=== PATIENT | male | born 1935 | race African-American/Black ===

== ENCOUNTER 2019-11-13 09:00 | Inpatient (IN) | payer OTHER, MEDICARE ==
[2019-11-13 10:24] LABS: #Eosinphils 0.1 thou/uL (0.0-0.7); #Monocytes 0.9 thou/uL (0.11-0.59); #Neutrophils 11.3 thou/uL (1.40-6.50); %Basophils 0.2 % (0.0-1.0); %Eosinophils 0.5 % (0.0-10.0); %Lymphocytes 7.6 % (21.0-51.0); %Monocytes 6.9 % (0.0-10.0); %Neutrophils 84.8 % (42.0-75.0); Hemoglobin 12.9 g/dL (14.0-18.0); Mean Corpuscular HGB CONC 32.9 g/dL (32.0-36.0); Mean Corpuscular Hemoglobin 29.5 pg (27.0-31.0); Mean Corpuscular Volume 89.6 fL (78.0-98.0); Mean Platelet Volume 8.7 fL (7.4-10.4); Platelet Count 156 thou/uL (130-400); RBC Distribution Width 12.8 % (11.5-14.5); Red Blood Cell (RBC) Count 4.36 mill/uL (4.70-6.10); White Blood Cell (WBC) Count 13.4 thou/uL (4.8-10.8)
[2019-11-13 10:42] LABS: Bacteria/HPF None Seen HPF (None Seen); Bilirubin Negative (Negative); Blood, Urine 2+ (Negative); Clarity Clear (Clear); Glucose, Urine (Dipstick) Normal (Negative); Leukocyte Negative Leu/uL (Negative); Nitrite Negative (Negative); Protein, Urine (Dipstick) Negative (Neg-Trace); RBC/HPF 21-50 HPF (0-3); Squamous Epithelial None Seen HPF (0-3); Urobilinogen Normal mg/dL (Less than 2); WBC/HPF 0-3 HPF (0-3)
[2019-11-13 10:44] LABS: ALT (SGPT) 18 U/L (8-55); AST (SGOT) 29 U/L (5-34); Albumin 4.3 g/dL (3.4-4.8); Alkaline Phosphatase 47 U/L (40-110); Anion Gap 23 mmol/L (10-20); BUN (Urea Nitrogen) 66 mg/dL (8.4-25.7); Bilirubin, Total 1.6 mg/dL (0.2-1.2); Calc. Creatinine Clearance 0 mL/min (70-130); Calcium 9.4 mg/dL (7.8-10.44); Carbon Dioxide 19 mmol/L (23-31); Chloride 101 mmol/L (98-107); Estimated GFR-MDRD 8; Globulin 3.8 g/dL (2.4-3.5); Glucose 90 mg/dL (83-110); Potassium 4.3 mmol/L (3.5-5.1); Protein, Total 8.1 g/dL (5.8-8.1); Sodium 139 mmol/L (136-145)
--- NOTE | 2019-11-13 12:41 | RAD ---
CHEST 1 VIEW: Date: 11/13/19 HISTORY: Shortness of breath. Slipped from chair at home. FINDINGS: Heart size is normal. The lungs are clear. No confluent pneumonia, overt edema, pleural effusion, pne umothorax, or other acute process. IMPRESSION: No acute intrathoracic disease. Atherosclerosis of aorta. POS: [facility]
[2019-11-13] MEDS ORDERED: Ondansetron ODT 4 MG TAB PO PRN (13:13)
[2019-11-13] MEDS: cefTRIAXone\\ROCEPHIN 1 GM in Sodium Chloride 0.9% 100 ML IVPB SCH (13:54)
[2019-11-13] MEDS: Sodium Chloride 0.9% 1,000 ML IV SCH ×2 (13:56→23:57)
[2019-11-13 14:06] VITALS: BMI 19.1
--- NOTE | 2019-11-13 16:28 | ULT ---
RENAL ULTRASOUND HISTORY: Acute kidney injury COMPARISON: None FINDINGS: Right Kidney: Size: 9.9 x 5.9 x 6.4 cm. Abnormality: There is mild right hydronephrosis. No focal renal lesion is demonstrated. Left Kidney: Size: 10.7 x 6.8 x 5.1 cm Abnormality: There is mild left hydronephrosis. No focal renal lesion is evident. Urinary bladder: The bladder is moderately distended with a prevoid bladder volume of 650 cc. The pro state is enlarged measuring 6.3 cm. There are bilateral ureteral jets identified. IMPRESSION: Findings suspicious for bladder outlet obstruction. Would recommend consideration for Fol ey catheter placement and repeat renal ultrasound imaging. There is mild bilateral hydronephrosis. Bilateral ureteral jets are demonstrated at the level of the bladder.
--- NOTE | 2019-11-14 01:12 | CON ---
DATE OF CONSULTATION: CONSULTING PHYSICIAN: John Lantigua MD REQUESTING PHYSICIAN: Dr. Zuluaga. REASON FOR CONSULTATION: Severe acute kidney injury. IMPRESSION: 1. Severe acute kidney injury this is likely in the context of obstructive uropathy from prostate. 2. Metabolic acidosis related to problem #1. 3. Advanced age. PLAN: 1. Farmer catheterization and leave the Farmer. 2. Resume patient's prostate medications and if no significant improvement, consider Urology consultation. 3. Renally dose all medications and avoid potentially nephrotoxic agents. 4. Watch out for postobstructive diuresis and rehydrate the patient accordingly. 5. Further management to be dependent on the clinical course. HISTORY OF PRESENT ILLNESS: History is that of 84-year-old gentleman, who presented to the ER, status post fall. The patient noted with elevated creatinine above 7. Farmer catheter was placed in the ER with drainage of urine, therefore Farmer was taken out. Renal ultrasound highly suspicious for obstructive uropathy. PAST MEDICAL HISTORY: Significant for BPH, hypertension. MEDICATIONS: Reviewed as documented on [facility]. ALLERGIES: NO KNOWN DRUG ALLERGIES. FAMILY HISTORY: No family history of kidney disease. SOCIAL HISTORY: No alcohol. No tobacco. No illicit drug use. The patient is a . REVIEW OF SYSTEMS: As documented in the body of the history. All the other systems were reviewed and found not to be significantly related to presenting illness. PHYSICAL EXAMINATION: GENERAL: The patient was found not to be in any obvious respiratory distress. VITAL SIGNS: Noted with the following vital signs afebrile, temperature 98, pulse 84, respiratory rate of 17, O2 saturation of 94% with blood pressure 185/98. HEENT: Unremarkable. CARDIOVASCULAR: First and second heart sounds were heard. RESPIRATORY: Clear to auscultation. DIGESTIVE: Revealed distended hypogastric area likely due to distended bladder. EXTREMITIES: No peripheral edema. SKIN: No new gross rash. UROGENITAL: Revealed distended bladder up to weeks . SUMMARY: An 84-year-old gentleman who presented here status post fall with evidence of acute kidney injury in the context of likely obstructive uropathy. Thank you for this consultation. We will follow with you. Job ID: [id number]
[2019-11-14 06:03] LABS: #Eosinphils 0.3 thou/uL (0.0-0.7); #Lymphocytes 1.2 thou/uL (1.20-3.40); #Monocytes 0.9 thou/uL (0.11-0.59); #Neutrophils 6.7 thou/uL (1.40-6.50); %Basophils 0.2 % (0.0-1.0); %Eosinophils 2.8 % (0.0-10.0); %Lymphocytes 12.7 % (21.0-51.0); %Monocytes 10.2 % (0.0-10.0); %Neutrophils 74.1 % (42.0-75.0); Hemoglobin 10.8 g/dL (14.0-18.0); Mean Corpuscular HGB CONC 33.2 g/dL (32.0-36.0); Mean Corpuscular Hemoglobin 29.6 pg (27.0-31.0); Mean Corpuscular Volume 89.3 fL (78.0-98.0); Mean Platelet Volume 8.7 fL (7.4-10.4); Platelet Count 136 thou/uL (130-400); RBC Distribution Width 12.7 % (11.5-14.5); Red Blood Cell (RBC) Count 3.63 mill/uL (4.70-6.10); White Blood Cell (WBC) Count 9.1 thou/uL (4.8-10.8)
[2019-11-14 06:27] LABS: Anion Gap 14 mmol/L (10-20); BUN (Urea Nitrogen) 43 mg/dL (8.4-25.7); Calc. Creatinine Clearance 25 mL/min (70-130); Calcium 8.3 mg/dL (7.8-10.44); Carbon Dioxide 23 mmol/L (23-31); Chloride 107 mmol/L (98-107); Estimated GFR-MDRD 38; Glucose 75 mg/dL (83-110); Sodium 140 mmol/L (136-145)
--- NOTE | 2019-11-14 07:41 | HP ---
PRIMARY CARE PHYSICIAN: Dr. Anderson located at [facility]. CHIEF COMPLAINT: Recurrent falls. HISTORY OF PRESENT ILLNESS: This is an 84-year-old male with past medical history of Parkinson disease, past medications for 1 year, unclear prostate problems with possible cancer reported by family, unclear bladder problems, hypertension, who was brought into [facility] ER by his daughter for recurrent falls since Thursday associated with diminished oral intake and significant weakness prompting further evaluation. Daughter reports the patient lives at home alone and is generally independent with activities of daily living without assistance. However, Thursday night, he slid off his loveseat and was found on the ground Thursday morning for at least secondary to weakness and she helped him back up onto loveseat. Later that evening, she again found him on the ground and helped him back up. When she took upon him this morning, she noted for a third time, he slid off loveseat secondary to weakness and prompt to ER for further evaluation. She notes that at baseline, he is functional and mobile. She thinks he may have had a gradual decline of her unspecified care at this time. The patient reports difficulty with urinating and wears Depend, but has otherwise vague doubt his urinary habits. In ER, laboratory values revealed BUN and creatinine of 66/7.59 with serum bicarbonate 19 and anion gap metabolic acidosis without hyperkalemia. CBC revealed leukocytosis. Urinalysis obtained with straight catheterization revealed 2+ blood and 21 to 50 rbc's, but was negative for nitrites and leukocyte esterase. Vital signs were otherwise unremarkable. His chest x-ray was negative. The patient was admitted for further evaluation of acute kidney injury. At bedside, the patient is accompanied by daughter and son-in-law. The patient corroborates history. Daughter reports last blood work was obtained at [facility] in August 2019 and she is unaware of any baseline kidney abnormalities. She reports seeing a doctor in early [address] [facility] and the patient was taken off his Parkinson medications at that time and family members were told that the patient may have prostate cancer, but no invasive workup was recommended or ever previously obtained. They know the patient had bladder and prostate medications at home, but do not know the name of it. Recently reported weight changes and the patient notes diminished oral intake and decreased energy. He denies any fever, chills, nausea, vomiting, abdominal or flank pain. REVIEW OF SYSTEMS: Pertinent positives as noted in HPI. Remainder of review of systems negative. PAST MEDICAL HISTORY: Hypertension, prostate issues unspecified, bladder issues unspecified. PAST SURGICAL HISTORY: The patient denies any previous surgical intervention. SOCIAL HISTORY: The patient admits to remote tobacco and alcohol use. Uses a walker and cane at baseline today to ambulate. He lives at home alone. HOME MEDICATIONS: Will be reviewed as per admission medication reconciliation. CURRENT MEDICATIONS: List is unavailable. FAMILY HISTORY: The patient's family members are . The patient is unclear of chronic medical comorbidities in family members. PHYSICAL EXAMINATION: VITAL SIGNS: Temperature 98.5, pulse 70, blood pressure 151/76, oxygen saturation 98% on room air, respirations 18 and unlabored. GENERAL APPEARANCE: This is an elderly malnourished-appearing male, who is awake, alert, oriented, conversant with notable resting tremors. HEENT: Normocephalic and atraumatic. Pupils are equally round. Extraocular muscles are intact. No facial asymmetry. Frontotemporal wasting noted. Dry mucous membranes. CARDIOVASCULAR: S1 and S2. Regular rate and rhythm. No harsh murmurs. No reproducible chest wall tenderness to palpation. RESPIRATORY: Nonlabored respiration on anterior auscultation. Symmetrical chest expansion. No audible wheezing or rales. ABDOMEN: Soft, nontender, and nondistended. No peritoneal signs. No flank tenderness appreciated. SKIN: Warm to touch without rashes, pallor, or abrasion. MUSCULOSKELETAL: The patient is able to lift bilateral arms and legs to antigravity. Poor overall movement due to weakness. NEUROLOGIC: No facial asymmetry. Resting tremor noted. LABORATORY DATA: WBC 13.4, H and H of 12.9/39.1, platelets 156. Sodium 139, potassium 4.3, chloride 101, bicarbonate 19, glucose 90, BUN and creatinine 66/7.59, GFR 8. Troponin I less than 0.010. Albumin 4.3. Urinalysis reveals 2+ blood, 21 to 50 rbc's, negative for nitrites, negative for leukocyte esterase, negative bacteria, negative squamous epithelial cells. IMAGING: One-view chest x-ray reveals no acute abnormalities. ASSESSMENT: 1. Acute kidney injury of unspecified etiology. The patient will be admitted as inpatient status. We will need to exclude prerenal etiologies as well as evaluate for bladder outlet obstruction secondary to reported history of bladder and prostate abnormalities. Urinalysis appears bland except for hematuria with no obvious signs of infection. However, in the setting of recurrent falls and weakness and metabolic acidosis, we will start the patient on isotonic saline, empiric antibiotic with IV Rocephin, obtain renal ultrasound, and evaluate for any postvoid residual as the patient has been incontinent. We will repeat a.m. labs to assess renal function. I have asked family members to obtain any outpatient recent laboratory records for comparison. We will need to obtain home medications as well as possible contributing factor and unclear as the patient has baseline chronic kidney disease. We will consult Nephrology for further assistance. We will avoid nephrotoxins. 2. Recurrent falls of unspecified etiology. We will need to include infectious etiology in the setting of acute kidney injury and possible bladder outlet obstruction. We will start the patient on isotonic saline, empiric antibiotics with 1 g Rocephin daily, and consult PT and OT for further evaluation and assessment. We will maintain fall precautions. Minimize psychotropics and sedatives. 3. Protein-calorie malnutrition of unspecified etiology. Consult dietitian for malnourishment evaluation. Continue on renal diet and start oral dietary supplements. 4. Parkinson disease is a known diagnosis. The patient follows with [facility] and has been taken off his medications since early 2018 for unspecified reasons. 5. Prostate issues of unspecified etiology. The patient's family reports possible benign prostatic hypertrophy or prostate cancer. Cannot further specify the details. They note the patient follows with [facility] in early 2018 and was advised to continue invasive evaluation. Will need to reconcile home medications and evaluate for any bladder outlet obstruction. 6. Hypertension, benign. Monitor blood pressure. Resume home blood pressure medications once the appropriate record found. Deep venous thrombosis prophylaxis with renally dosed Lovenox. Check a.m. labs on 11/14/2019. Disposition: The patient will be admitted as inpatient status. Anticipate greater than 2-midnight stay. Code status: Full code. The patient's medical power of title attorney is his daughter, Hazel Stratton, whom I discussed plan of care with at bedside. Job ID: [id number] MTDD
[2019-11-14] MEDS: Sodium Chloride 0.9% 1,000 ML IV SCH ×2 (08:22→21:10)
[2019-11-14] MEDS: Enoxaparin Sodium 30 MG/0.3 ML SYRINGE SC SCH (08:22)
[2019-11-14] MEDS: Carbidopa/Levodopa 25-100 mg Tablet PO SCH ×2 (14:02→21:12)
[2019-11-14] MEDS: Artificial Tear Sol 15 ML BOT EA EYE SCH ×2 (14:02→16:36)
[2019-11-14] MEDS: cefTRIAXone\\ROCEPHIN 1 GM in Sodium Chloride 0.9% 100 ML IVPB SCH (14:03)
[2019-11-14] MEDS ORDERED: FLU VACC TS2019-20(65YR UP)/PF 180 MCG/0.5 ML SYRINGE IM ONE (14:15)
--- NOTE | 2019-11-14 17:08 | PDOC.HOSPP ---
- Subjective Encounter Date: 11/14/19 Encounter Time: 09:40 Subjective: Ptseen for followup re: obstructive uropathy. Denies chest pain or shortness of breath. c/o generalized weakness. Occasional difficulty swallowing. - Objective Vital Signs & Weight: Vital Signs (12 hours) Temp Pulse Resp BP Pulse Ox 11/14/19 11:38 98.5 F 86 18 153/76 H 93 L 11/14/19 08:00 94 L 11/14/19 07:30 98.6 F 71 18 107/68 94 L Weight Admit Weight 141 lb 4.96 oz Weight 141 lb 4.96 oz I&O: 11/13/19 11/14/19 11/15/19 06:59 06:59 06:59 Intake Total 1800 Output Total 1000 401 Balance 800 -401 Result Diagrams: 11/14/19 05:23 11/14/19 05:23 Additional Labs: Labs and MARs reviewed by [facility] Hospitalist ROS - Review of Systems Constitutional: reports: weakness Respiratory: denies: cough, dry, shortness of breath, hemoptysis, SOB with excertion, pleuritic pain, sputum, wheezing Cardiovascular: denies: chest pain, palpitations, orthopnea, paroxysmal noc. dyspnea, edema, light headedness Gastrointestinal: reports: other (difficulty swallowing) - Medication Medications: Active Medications Generic Name Dose Route Start Last Admin Trade Name Freq PRN Reason Stop Dose Admin Artificial Tears 0 drop 11/14/19 13:00 11/14/19 16:36 Liquitears 15ml Bottle EA EYE Not Given QID STANTON Carbidopa/Levodopa 3 tab 11/14/19 15:00 11/14/19 14:02 Sinemet 25-100 PO 3 tab TID STANTON Administration Enoxaparin Sodium 30 mg 11/14/19 09:00 11/14/19 08:22 Lovenox SC 30 mg 0900 STANTON Administration Sodium Chloride 1,000 mls @ 100 mls/hr 11/13/19 13:15 11/14/19 08:22 Normal Saline 0.9% IV 1,000 mls .Q10H STANTON Administration Ceftriaxone Sodium 1 gm/ 100 mls @ 200 mls/hr 11/13/19 14:00 11/14/19 14:03 Sodium Chloride IVPB 100 mls 1400 STANTON Administration Ondansetron HCl 4 mg 11/13/19 13:13 11/13/19 17:40 Zofran Odt PO 4 mg Q6H PRN Administration Nausea/Vomiting - Exam General - other findings: appears malnourished Eye: anicteric sclera ENT: moist mucosa Neck: supple, no JVD Heart: RRR Respiratory: CTAB, no rales Gastrointestinal: soft, non-tender Extremities: no clubbing Psychiatric: normal affect, normal behavior Hosp A/P (1) Obstructive uropathy Code(s): N13.9 - OBSTRUCTIVE AND REFLUX UROPATHY, UNSPECIFIED Status: Acute (2) ANN-MARIE (acute kidney injury) Code(s): N17.9 - ACUTE KIDNEY FAILURE, UNSPECIFIED Status: Acute (3) Falls Code(s): W19.XXXA - UNSPECIFIED FALL, INITIAL ENCOUNTER Status: Chronic (4) Oropharyngeal dysphagia Code(s): R13.12 - DYSPHAGIA, OROPHARYNGEAL PHASE Status: Chronic (5) Moderate protein-energy malnutrition Code(s): E44.0 - MODERATE PROTEIN-CALORIE MALNUTRITION Status: Chronic (6) Parkinson disease Code(s): G20 - PARKINSON'S DISEASE Status: Chronic (7) HTN (hypertension) Code(s): I10 - ESSENTIAL (PRIMARY) HYPERTENSION Status: Chronic - Plan continue antibiotics, PT/OT, speech therapy ANN-MARIE improved after Farmer catheter placement. Urology consult re: obstructive uropathy. Hold trospium. Home anti hypertensives resumed. Monitor vital signs and titrate antihypertensives as needed. Ambulate patient. If pt remains afebrile overnight, discontinue ceftriaxone.
--- NOTE | 2019-11-14 17:37 | CON ---
DATE OF CONSULTATION: 11/14/2019 REASON FOR CONSULTATION: Obstructive uropathy. HISTORY OF PRESENT ILLNESS: Mr. Auguste is an 84-year-old gentleman, who presented to the hospital after being found down at home. On admission, he was noted to have a creatinine elevation to 7.6. He is also noted to have some mild bilateral hydronephrosis. He has been taking prostate medicine at home and based on description says that he was on Flomax. He has been followed up with the urologist at the [facility]. Since Farmer catheter has been placed, his creatinine is improved significantly, is down to 2.02. PAST MEDICAL HISTORY: Hypertension and possible Parkinson disease. PAST SURGICAL HISTORY: No prior surgeries. SOCIAL HISTORY: He is a nonsmoker and nondrinker; although, he has used both in the past. He is able to walk with a cane. He lives at home alone. His daughter was in the room during evaluation. CURRENT MEDICATIONS: 1. Artificial Tears. 2. Carbidopa/levodopa two tablets p.o. t.i.d. 3. Ceftriaxone. 4. Celexa 20 mg p.o. daily. 5. Finasteride 5 mg daily. 6. Metoprolol. 7. Zofran. 8. Flomax 0.4 mg p.o. b.i.d. 9. Terazosin 2 mg p.o. at bedtime. 10. Trospium 20 mg p.o. at bedtime. FAMILY HISTORY: Noncontributory. REVIEW OF SYSTEMS: RESPIRATORY: Denies any shortness of breath. CARDIOVASCULAR: Denies chest pain or palpitations. GASTROINTESTINAL: Denies chronic constipation or diarrhea. GENITOURINARY: Please see history of present illness. NEUROLOGIC: He has a tremor and is being worked up for Parkinson disease. PHYSICAL EXAMINATION: GENERAL: He is awake and alert. He is in no distress at this time. He does have a resting tremor. VITAL SIGNS: Temperature 98.5, blood pressure 151/76, and pulse 70. HEENT: Normocephalic and atraumatic. NECK: Supple without masses. CHEST: Clear to auscultation. CARDIOVASCULAR: Regular rhythm. ABDOMEN: Soft and nontender. No palpable masses. : Farmer catheter is in place, draining clear yellow urine. Renal ultrasound, mild bilateral hydronephrosis, enlarged prostate. IMPRESSION: Mr. Auguste is an 84-year-old gentleman, who presented to the hospital with renal failure and this has essentially resolved with Farmer catheter placement. He will need a Farmer catheter for at least 1 week and his prostate medicine should be resumed. He should discontinue trospium. He will need follow up in our office for a voiding trial and if retention could not resolve with medical therapy, he may require a transurethral resection of prostate. I have discussed this with both the patient and his daughter in the room today. RECOMMENDATIONS: 1. Continue finasteride and Flomax. 2. Follow up in office in 1 week for cystoscopy and voiding trial. We will make arrangements for this prior to his discharge. 3. Discontinue trospium. Job ID: [id number]
[2019-11-14] MEDS ORDERED: Trospium 20 MG TAB PO SCH (21:00)
[2019-11-14] MEDS: Terazosin HCl 1 MG CAP PO SCH (21:11)
[2019-11-14] MEDS: Tamsulosin HCl 0.4 MG CAP PO SCH (21:12)
[2019-11-14] MEDS: Metoprolol Tartrate 100 MG TAB PO SCH (21:12)
[2019-11-14] MEDS: rOPINIRole HCl 2 MG TAB PO SCH (21:12)
--- NOTE | 2019-11-15 00:05 | PRG ---
DATE OF SERVICE: SUBJECTIVE: The patient was seen and examined, seems to be doing much better, noted with the following vital signs. OBJECTIVE: VITAL SIGNS: Afebrile, temperature 98.6, pulse 71, respiratory rate of 18, O2 saturation of 94%, and blood pressure 107/68. HEENT: Unremarkable. CARDIOVASCULAR: First and second heart sounds were heard. RESPIRATORY: Clear to auscultation. DIGESTIVE: Revealed a benign abdomen. Positive bowel sounds. EXTREMITIES: No peripheral edema. SKIN: No new gross rash. LYMPHATICS: No peripheral lymphadenopathy. LABORATORY INVESTIGATIONS: Significant for creatinine down to 2.02 from 7.59. IMPRESSION: Acute on chronic kidney disease in the context of obstructive uropathy, improving, status post Farmer catheterization. PLAN: 1. We will continue with current renal supportive measures. 2. Retain Farmer catheter until the patient is able to void. 3. Urology evaluation recommended. Job ID: [id number]
[2019-11-15] MEDS: Artificial Tear Sol 15 ML BOT EA EYE SCH ×5 (05:39→21:21)
[2019-11-15] MEDS: Tamsulosin HCl 0.4 MG CAP PO SCH ×2 (08:41→21:21)
[2019-11-15] MEDS: Metoprolol Tartrate 100 MG TAB PO SCH ×2 (08:41→21:20)
[2019-11-15] MEDS: Carbidopa/Levodopa 25-100 mg Tablet PO SCH ×3 (08:42→21:20)
[2019-11-15] MEDS: Finasteride 5 MG TAB PO SCH (08:42)
[2019-11-15] MEDS: Citalopram 20 MG TAB PO SCH (08:42)
[2019-11-15] MEDS: Sodium Chloride 0.9% 1,000 ML IV SCH (08:43)
[2019-11-15] MEDS: Enoxaparin Sodium 30 MG/0.3 ML SYRINGE SC SCH (09:08)
--- NOTE | 2019-11-15 09:17 | PRG ---
DATE OF SERVICE: 11/15/2019 SUBJECTIVE: The patient has no new complaints. OBJECTIVE: VITAL SIGNS: Most recent vital signs, temperature 97.7, pulse 64, O2 saturations 94%, respiratory rate 18. ABDOMEN: Soft, nontender. No palpable masses. IMPRESSION: The patient has responded well to Farmer catheterization. His most recent creatinine on 11/14/2019 is 2.02. PLAN: He will need to follow up in Urology. We will see him in our office if allowed. Otherwise, he will need to follow up with his [place] urologist. The catheter should be left in place for at least a week to allow for bladder decompression and he should continue his normal prostate medications of Flomax and finasteride and terazosin. Job ID: [id number]
[2019-11-15 09:37] LABS: #Eosinphils 0.4 thou/uL (0.0-0.7); #Lymphocytes 1.4 thou/uL (1.20-3.40); #Monocytes 0.6 thou/uL (0.11-0.59); #Neutrophils 3.8 thou/uL (1.40-6.50); %Basophils 0.1 % (0.0-1.0); %Eosinophils 6.5 % (0.0-10.0); %Lymphocytes 22.7 % (21.0-51.0); %Monocytes 9.6 % (0.0-10.0); %Neutrophils 61.1 % (42.0-75.0); Hemoglobin 10.3 g/dL (14.0-18.0); Mean Corpuscular HGB CONC 32.3 g/dL (32.0-36.0); Mean Corpuscular Hemoglobin 29.6 pg (27.0-31.0); Mean Corpuscular Volume 91.5 fL (78.0-98.0); Mean Platelet Volume 8.4 fL (7.4-10.4); Platelet Count 132 thou/uL (130-400); RBC Distribution Width 12.6 % (11.5-14.5); Red Blood Cell (RBC) Count 3.49 mill/uL (4.70-6.10); White Blood Cell (WBC) Count 6.2 thou/uL (4.8-10.8)
[2019-11-15 10:07] LABS: Anion Gap 11 mmol/L (10-20); BUN (Urea Nitrogen) 18 mg/dL (8.4-25.7); Calc. Creatinine Clearance 57 mL/min (70-130); Calcium 7.9 mg/dL (7.8-10.44); Carbon Dioxide 24 mmol/L (23-31); Chloride 110 mmol/L (98-107); Estimated GFR-MDRD Greater than 90; Glucose 100 mg/dL (83-110); Potassium 3.7 mmol/L (3.5-5.1); Sodium 141 mmol/L (136-145)
[2019-11-15] MEDS: cefTRIAXone\\ROCEPHIN 1 GM in Sodium Chloride 0.9% 100 ML IVPB SCH (14:47)
--- NOTE | 2019-11-15 17:46 | PRG ---
DATE OF SERVICE: 11/15/2019 SUBJECTIVE: The patient is seen and examined, noted with the following vital signs. OBJECTIVE: VITAL SIGNS: Afebrile, temperature 97.7, pulse 64, respiratory rate of 18, O2 saturation 94%, blood pressure 118/71. HEENT: Unremarkable. CARDIOVASCULAR: First and second heart sounds were heard. RESPIRATORY: Clear to auscultation. DIGESTIVE SYSTEM: Revealed a benign abdomen. EXTREMITIES: No peripheral edema. SKIN: No new gross rash. LYMPHATICS: No peripheral lymphadenopathy. IMPRESSION: 1. Acute kidney injury in the context of obstructive uropathy, grossly resolved. 2. Obstructive uropathy. PLAN: 1. We will continue current renal supportive measures. 2. Further management to be dependent on the clinical course and further recommendation from Urology Service. Job ID: [id number]
--- NOTE | 2019-11-15 18:13 | PDOC.HOSPP ---
- Subjective Encounter Date: 11/15/19 Encounter Time: 09:40 Subjective: Pt seen for followup re: obstructive uropathy. Feels better. - Objective Vital Signs & Weight: Vital Signs (12 hours) Temp Pulse Resp BP Pulse Ox 11/15/19 07:28 97.7 F 64 18 118/71 94 L Weight Admit Weight 141 lb 4.96 oz Weight 141 lb 4.96 oz I&O: 11/14/19 11/15/19 11/16/19 06:59 06:59 06:59 Intake Total 1800 Output Total 1000 1301 550 Balance 800 -1301 -550 Result Diagrams: 11/15/19 09:11 11/15/19 09:11 Additional Labs: Labs and MARs reviewed by [facility] Hospitalist ROS - Review of Systems Constitutional: reports: weakness. denies: fever, chills, sweats, malaise Musculoskeletal: denies: neck pain, shoulder pain, arm pain, back pain, hand pain, leg pain, foot pain - Medication Medications: Active Medications Generic Name Dose Route Start Last Admin Trade Name Freq PRN Reason Stop Dose Admin Artificial Tears 0 drop 11/14/19 13:00 11/15/19 14:51 Liquitears 15ml Bottle EA EYE 1 drop QID STANTON Administration Carbidopa/Levodopa 3 tab 11/14/19 15:00 11/15/19 14:48 Sinemet 25-100 PO 3 tab TID STANTON Administration Citalopram Hydrobromide 20 mg 11/15/19 09:00 11/15/19 08:42 Celexa PO 20 mg DAILY STANTON Administration Enoxaparin Sodium 30 mg 11/14/19 09:00 11/15/19 09:08 Lovenox SC Not Given 09 STANTON Finasteride 5 mg 11/15/19 09:00 11/15/19 08:42 Proscar PO 5 mg DAILY STANTON Administration Ceftriaxone Sodium 1 gm/ 100 mls @ 200 mls/hr 11/13/19 14:00 11/15/19 14:47 Sodium Chloride IVPB 100 mls 1400 STANTON Administration Metoprolol Tartrate 100 mg 11/14/19 21:00 11/15/19 08:41 Lopressor PO 100 mg BID STANTON Administration Ondansetron HCl 4 mg 11/13/19 13:13 11/13/19 17:40 Zofran Odt PO 4 mg Q6H PRN Administration Nausea/Vomiting Ropinirole HCl 2 mg 11/14/19 21:00 11/14/19 21:12 Requip PO 2 mg HS STANTON Administration Tamsulosin HCl 0.4 mg 11/14/19 21:00 11/15/19 08:41 Flomax PO 0.4 mg BID STANTON Administration Terazosin HCl 2 mg 11/14/19 21:00 11/14/19 21:11 Hytrin PO 2 mg HS STANTON Administration - Exam General Appearance: NAD, awake alert Eye: anicteric sclera ENT: moist mucosa Neck: supple Heart: RRR Respiratory: CTAB, no wheezes, normal chest expansion Gastrointestinal: soft, non-tender Skin: no rashes Psychiatric: normal affect, normal behavior Hosp A/P (1) Obstructive uropathy Code(s): N13.9 - OBSTRUCTIVE AND REFLUX UROPATHY, UNSPECIFIED Status: Acute (2) Falls Code(s): W19.XXXA - UNSPECIFIED FALL, INITIAL ENCOUNTER Status: Chronic (3) Oropharyngeal dysphagia Code(s): R13.12 - DYSPHAGIA, OROPHARYNGEAL PHASE Status: Chronic (4) Moderate protein-energy malnutrition Code(s): E44.0 - MODERATE PROTEIN-CALORIE MALNUTRITION Status: Chronic (5) Parkinson disease Code(s): G20 - PARKINSON'S DISEASE Status: Chronic (6) HTN (hypertension) Code(s): I10 - ESSENTIAL (PRIMARY) HYPERTENSION Status: Chronic (7) ANN-MARIE (acute kidney injury) Code(s): N17.9 - ACUTE KIDNEY FAILURE, UNSPECIFIED Status: Resolved - Plan PT/OT, out of bed/ambulate ANN-MARIE resolved. Hold trospium. Monitor vital signs and titrate antihypertensives as needed. Ambulate patient. Discontinue ceftriaxone.
[2019-11-15] MEDS: Terazosin HCl 1 MG CAP PO SCH (21:19)
[2019-11-15] MEDS: rOPINIRole HCl 2 MG TAB PO SCH (21:20)
[2019-11-16 05:14] LABS: #Basophils 0.1 thou/uL (0.0-0.2); #Eosinphils 0.4 thou/uL (0.0-0.7); #Lymphocytes 1.1 thou/uL (1.20-3.40); #Monocytes 0.4 thou/uL (0.11-0.59); #Neutrophils 3.9 thou/uL (1.40-6.50); %Basophils 1.2 % (0.0-1.0); %Eosinophils 6.1 % (0.0-10.0); %Lymphocytes 19.3 % (21.0-51.0); %Monocytes 7.3 % (0.0-10.0); %Neutrophils 66.1 % (42.0-75.0); Hemoglobin 9.8 g/dL (14.0-18.0); Mean Corpuscular HGB CONC 32.3 g/dL (32.0-36.0); Mean Corpuscular Hemoglobin 29.3 pg (27.0-31.0); Mean Corpuscular Volume 90.7 fL (78.0-98.0); Mean Platelet Volume 8.1 fL (7.4-10.4); Platelet Count 141 thou/uL (130-400); RBC Distribution Width 12.5 % (11.5-14.5); Red Blood Cell (RBC) Count 3.36 mill/uL (4.70-6.10); White Blood Cell (WBC) Count 5.9 thou/uL (4.8-10.8)
[2019-11-16 05:32] LABS: Anion Gap 8 mmol/L (10-20); BUN (Urea Nitrogen) 12 mg/dL (8.4-25.7); Calc. Creatinine Clearance 62 mL/min (70-130); Calcium 7.9 mg/dL (7.8-10.44); Carbon Dioxide 26 mmol/L (23-31); Chloride 109 mmol/L (98-107); Estimated GFR-MDRD Greater than 90; Glucose 106 mg/dL (83-110); Potassium 3.6 mmol/L (3.5-5.1); Sodium 139 mmol/L (136-145)
[2019-11-16] MEDS: Metoprolol Tartrate 100 MG TAB PO SCH ×2 (08:12→20:46)
[2019-11-16] MEDS: Carbidopa/Levodopa 25-100 mg Tablet PO SCH ×3 (08:12→20:46)
[2019-11-16] MEDS: Enoxaparin Sodium 30 MG/0.3 ML SYRINGE SC SCH (08:13)
[2019-11-16] MEDS: Finasteride 5 MG TAB PO SCH (08:13)
[2019-11-16] MEDS: Artificial Tear Sol 15 ML BOT EA EYE SCH ×4 (08:13→20:46)
[2019-11-16] MEDS: Citalopram 20 MG TAB PO SCH (08:13)
[2019-11-16] MEDS: Tamsulosin HCl 0.4 MG CAP PO SCH ×2 (08:13→20:46)
--- NOTE | 2019-11-16 18:42 | PDOC.HOSPP ---
- Subjective Encounter Date: 11/16/19 Encounter Time: 08:20 Subjective: Pt seen for followup re: obstructive uropathy. States he feels better. Good appetite. - Objective Vital Signs & Weight: Vital Signs (12 hours) Temp Pulse Resp BP Pulse Ox 11/16/19 16:18 97.8 F 72 18 124/70 95 11/16/19 10:49 98.0 F 62 18 122/74 96 11/16/19 08:00 97.9 F 72 18 138/76 95 Weight Admit Weight 141 lb 4.96 oz Weight 141 lb 4.96 oz I&O: 11/15/19 11/16/19 11/17/19 06:59 06:59 06:59 Output Total 1301 1000 Balance -1301 -1000 Result Diagrams: 11/16/19 04:45 11/16/19 04:45 Additional Labs: Labs and MARs reviewed by pa Hospitalist ROS - Review of Systems Cardiovascular: denies: chest pain, palpitations, orthopnea, paroxysmal noc. dyspnea, edema, light headedness Gastrointestinal: denies: nausea, vomiting, abdominal pain, diarrhea, constipation, melena, hematochezia - Medication Medications: Active Medications Generic Name Dose Route Start Last Admin Trade Name Freq PRN Reason Stop Dose Admin Artificial Tears 0 drop 11/14/19 13:00 11/16/19 17:05 Liquitears 15ml Bottle EA EYE 1 drop QID STANTON Administration Carbidopa/Levodopa 3 tab 11/14/19 15:00 11/16/19 14:05 Sinemet 25-100 PO 3 tab TID STANTON Administration Citalopram Hydrobromide 20 mg 11/15/19 09:00 11/16/19 08:13 Celexa PO 20 mg DAILY STANTON Administration Enoxaparin Sodium 30 mg 11/14/19 09:00 11/16/19 08:13 Lovenox SC 30 mg 0900 STANTON Administration Finasteride 5 mg 11/15/19 09:00 11/16/19 08:13 Proscar PO 5 mg DAILY STANTON Administration Metoprolol Tartrate 100 mg 11/14/19 21:00 11/16/19 08:12 Lopressor PO 100 mg BID STANTON Administration Ondansetron HCl 4 mg 11/13/19 13:13 11/13/19 17:40 Zofran Odt PO 4 mg Q6H PRN Administration Nausea/Vomiting Ropinirole HCl 2 mg 11/14/19 21:00 11/15/19 21:20 Requip PO 2 mg HS STANTON Administration Tamsulosin HCl 0.4 mg 11/14/19 21:00 11/16/19 08:13 Flomax PO 0.4 mg BID STANTON Administration Terazosin HCl 2 mg 11/14/19 21:00 11/15/19 21:19 Hytrin PO 2 mg HS STANTON Administration - Exam General Appearance: NAD ENT: moist mucosa Neck: supple, no thyromegaly Heart: RRR Respiratory: CTAB Gastrointestinal: soft, non-tender Extremities: no cyanosis, no clubbing Psychiatric: normal affect, normal behavior Hosp A/P (1) Obstructive uropathy Code(s): N13.9 - OBSTRUCTIVE AND REFLUX UROPATHY, UNSPECIFIED Status: Acute (2) Falls Code(s): W19.XXXA - UNSPECIFIED FALL, INITIAL ENCOUNTER Status: Chronic (3) Oropharyngeal dysphagia Code(s): R13.12 - DYSPHAGIA, OROPHARYNGEAL PHASE Status: Chronic (4) Moderate protein-energy malnutrition Code(s): E44.0 - MODERATE PROTEIN-CALORIE MALNUTRITION Status: Chronic (5) Parkinson disease Code(s): G20 - PARKINSON'S DISEASE Status: Chronic (6) HTN (hypertension) Code(s): I10 - ESSENTIAL (PRIMARY) HYPERTENSION Status: Chronic (7) ANN-MARIE (acute kidney injury) Code(s): N17.9 - ACUTE KIDNEY FAILURE, UNSPECIFIED Status: Resolved - Plan PT/OT, out of bed/ambulate Pt to follow up with urology as outpt. Hold trospium. Ambulate patient. Rehab vs SNU. Discussed with daughter and son in law by bedside, updated them.
[2019-11-16] MEDS: rOPINIRole HCl 2 MG TAB PO SCH (20:46)
[2019-11-16] MEDS: Terazosin HCl 1 MG CAP PO SCH (20:46)
--- NOTE | 2019-11-16 20:46 | PRG ---
DATE OF SERVICE: 11/16/2019 SUBJECTIVE: The patient noted with the following vital signs. OBJECTIVE: VITAL SIGNS: Temperature 98.5, pulse 76, respiratory rate of 19, O2 saturations are 94%, and blood pressure 133/62. HEENT: Unremarkable. CARDIOVASCULAR SYSTEM: First and second heart sounds were heard. RESPIRATORY SYSTEM: Clear to auscultation. DIGESTIVE SYSTEM: Revealed a benign abdomen. Positive bowel sounds. EXTREMITIES: No peripheral edema. SKIN: No new gross rash. LYMPHATICS: No peripheral lymphadenopathy. IMPRESSION: Acute kidney injury in the context of obstructive uropathy, resolved. PLAN: 1. Continue current renal supportive measures. 2. Further management to be dependent on the clinical course. Job ID: [id number]
[2019-11-17 05:25] LABS: #Eosinphils 0.4 thou/uL (0.0-0.7); #Lymphocytes 1.4 thou/uL (1.20-3.40); #Monocytes 0.7 thou/uL (0.11-0.59); #Neutrophils 4.8 thou/uL (1.40-6.50); %Basophils 0.1 % (0.0-1.0); %Eosinophils 5.9 % (0.0-10.0); %Lymphocytes 19.4 % (21.0-51.0); %Monocytes 9.4 % (0.0-10.0); %Neutrophils 65.2 % (42.0-75.0); Hemoglobin 10.1 g/dL (14.0-18.0); Mean Corpuscular HGB CONC 32.7 g/dL (32.0-36.0); Mean Corpuscular Hemoglobin 29.6 pg (27.0-31.0); Mean Corpuscular Volume 90.4 fL (78.0-98.0); Mean Platelet Volume 8.1 fL (7.4-10.4); Platelet Count 167 thou/uL (130-400); RBC Distribution Width 12.5 % (11.5-14.5); Red Blood Cell (RBC) Count 3.41 mill/uL (4.70-6.10); White Blood Cell (WBC) Count 7.4 thou/uL (4.8-10.8)
[2019-11-17 06:03] LABS: Anion Gap 6 mmol/L (10-20); BUN (Urea Nitrogen) 11 mg/dL (8.4-25.7); Calc. Creatinine Clearance 63 mL/min (70-130); Calcium 8.2 mg/dL (7.8-10.44); Carbon Dioxide 28 mmol/L (23-31); Chloride 105 mmol/L (98-107); Estimated GFR-MDRD Greater than 90; Glucose 105 mg/dL (83-110); Potassium 3.4 mmol/L (3.5-5.1); Sodium 136 mmol/L (136-145)
[2019-11-17] MEDS: Finasteride 5 MG TAB PO SCH (08:03)
[2019-11-17] MEDS: Tamsulosin HCl 0.4 MG CAP PO SCH ×2 (08:03→21:44)
[2019-11-17] MEDS: Metoprolol Tartrate 100 MG TAB PO SCH ×2 (08:03→21:44)
[2019-11-17] MEDS: Citalopram 20 MG TAB PO SCH (08:03)
[2019-11-17] MEDS: Carbidopa/Levodopa 25-100 mg Tablet PO SCH ×3 (08:03→21:43)
[2019-11-17] MEDS: Enoxaparin Sodium 30 MG/0.3 ML SYRINGE SC SCH (08:04)
[2019-11-17] MEDS: Artificial Tear Sol 15 ML BOT EA EYE SCH ×4 (08:14→21:43)
--- NOTE | 2019-11-17 15:09 | PDOC.HOSPP ---
- Subjective Encounter Date: 11/17/19 Encounter Time: 08:00 Subjective: Pt seen for followup re: obstructive uropathy. Feels better, no complaints. - Objective Vital Signs & Weight: Vital Signs (12 hours) Temp Pulse Resp BP Pulse Ox 11/17/19 11:35 98.7 F 65 18 124/68 94 L 11/17/19 08:00 93 L 11/17/19 07:32 98.5 F 69 18 134/73 93 L Weight Admit Weight 141 lb 4.96 oz Weight 141 lb 4.96 oz I&O: 11/16/19 11/17/19 11/18/19 06:59 06:59 06:59 Intake Total 250 Output Total 1000 Balance -1000 250 Result Diagrams: 11/17/19 04:47 11/17/19 04:47 Additional Labs: Labs and MARs reviewed by ia Hospitalist ROS - Review of Systems Cardiovascular: denies: chest pain, palpitations, orthopnea, paroxysmal noc. dyspnea, edema, light headedness Gastrointestinal: denies: nausea, vomiting, abdominal pain, diarrhea, constipation, melena, hematochezia - Medication Medications: Active Medications Generic Name Dose Route Start Last Admin Trade Name Freq PRN Reason Stop Dose Admin Artificial Tears 0 drop 11/14/19 13:00 11/17/19 08:14 Liquitears 15ml Bottle EA EYE 1 drop QID STANTON Administration Carbidopa/Levodopa 3 tab 11/14/19 15:00 11/17/19 08:03 Sinemet 25-100 PO 3 tab TID STANTON Administration Citalopram Hydrobromide 20 mg 11/15/19 09:00 11/17/19 08:03 Celexa PO 20 mg DAILY STANTON Administration Enoxaparin Sodium 30 mg 11/14/19 09:00 11/17/19 08:04 Lovenox SC 30 mg 0900 STANTON Administration Finasteride 5 mg 11/15/19 09:00 11/17/19 08:03 Proscar PO 5 mg DAILY STANTON Administration Metoprolol Tartrate 100 mg 11/14/19 21:00 11/17/19 08:03 Lopressor PO 100 mg BID STANTON Administration Ondansetron HCl 4 mg 11/13/19 13:13 11/13/19 17:40 Zofran Odt PO 4 mg Q6H PRN Administration Nausea/Vomiting Ropinirole HCl 2 mg 11/14/19 21:00 11/16/19 20:46 Requip PO 2 mg HS STANTON Administration Tamsulosin HCl 0.4 mg 11/14/19 21:00 11/17/19 08:03 Flomax PO 0.4 mg BID STANTON Administration Terazosin HCl 2 mg 11/14/19 21:00 11/16/19 20:46 Hytrin PO 2 mg HS STANTON Administration - Exam General Appearance: NAD Eye: anicteric sclera ENT: moist mucosa Neck: supple Heart: RRR Respiratory: no wheezes Gastrointestinal: non-tender, non-distended Extremities: no cyanosis Skin: no rashes Psychiatric: normal affect, normal behavior Hosp A/P (1) Obstructive uropathy Code(s): N13.9 - OBSTRUCTIVE AND REFLUX UROPATHY, UNSPECIFIED Status: Acute (2) Falls Code(s): W19.XXXA - UNSPECIFIED FALL, INITIAL ENCOUNTER Status: Chronic (3) Oropharyngeal dysphagia Code(s): R13.12 - DYSPHAGIA, OROPHARYNGEAL PHASE Status: Chronic (4) Moderate protein-energy malnutrition Code(s): E44.0 - MODERATE PROTEIN-CALORIE MALNUTRITION Status: Chronic (5) Parkinson disease Code(s): G20 - PARKINSON'S DISEASE Status: Chronic (6) HTN (hypertension) Code(s): I10 - ESSENTIAL (PRIMARY) HYPERTENSION Status: Chronic (7) ANN-MARIE (acute kidney injury) Code(s): N17.9 - ACUTE KIDNEY FAILURE, UNSPECIFIED Status: Resolved - Plan PT/OT Pt to follow up with urology as outpt after one week (either [place] urologist or Dr. warren). Will discontinue trospium from home medications.(promotes urinary retention). Ambulate patient. Awaiting Inpt Rehab.
[2019-11-17] MEDS: Terazosin HCl 1 MG CAP PO SCH (21:44)
[2019-11-17] MEDS: rOPINIRole HCl 2 MG TAB PO SCH (21:44)
[2019-11-18] MEDS: Tamsulosin HCl 0.4 MG CAP PO SCH ×2 (09:46→20:13)
[2019-11-18] MEDS: Carbidopa/Levodopa 25-100 mg Tablet PO SCH ×3 (09:47→20:12)
[2019-11-18] MEDS: Citalopram 20 MG TAB PO SCH (09:47)
[2019-11-18] MEDS: Metoprolol Tartrate 100 MG TAB PO SCH ×2 (09:47→20:13)
[2019-11-18] MEDS: Enoxaparin Sodium 30 MG/0.3 ML SYRINGE SC SCH (09:47)
[2019-11-18] MEDS: Artificial Tear Sol 15 ML BOT EA EYE SCH ×4 (09:47→20:12)
[2019-11-18] MEDS: Finasteride 5 MG TAB PO SCH (09:47)
[2019-11-18] MEDS: Terazosin HCl 1 MG CAP PO SCH (20:13)
[2019-11-18] MEDS: rOPINIRole HCl 2 MG TAB PO SCH (20:13)
--- NOTE | 2019-11-18 20:57 | PDOC.HOSPP ---
- Subjective Encounter Date: 11/18/19 Encounter Time: 15:00 Subjective: Patient seen and examined for ANN-MARIE. No fever/chills/dysuria. No new complaints. No overnight events - Objective Vital Signs & Weight: Vital Signs (12 hours) Temp Pulse Resp BP Pulse Ox 11/18/19 19:20 94 L 11/18/19 19:14 98.6 F 70 18 126/61 94 L Weight Admit Weight 141 lb 4.96 oz Weight 141 lb 4.96 oz I&O: 11/17/19 11/18/19 11/19/19 06:59 06:59 06:59 Intake Total 250 240 560 Output Total 900 400 Balance 250 -660 160 Result Diagrams: 11/17/19 04:47 11/17/19 04:47 Hospitalist ROS - Review of Systems Respiratory: denies: cough, dry, shortness of breath, hemoptysis, SOB with excertion, pleuritic pain, sputum, wheezing, other Cardiovascular: denies: chest pain, palpitations, orthopnea, paroxysmal noc. dyspnea, edema, light headedness, other Gastrointestinal: denies: nausea, vomiting, abdominal pain, diarrhea, constipation, melena, hematochezia, other - Medication Medications: Active Medications Generic Name Dose Route Start Last Admin Trade Name Freq PRN Reason Stop Dose Admin Artificial Tears 0 drop 11/14/19 13:00 11/18/19 20:12 Liquitears 15ml Bottle EA EYE 1 drop QID ST[facility]ON Administration Carbidopa/Levodopa 3 tab 11/14/19 15:00 11/18/19 20:12 Sinemet 25-100 PO 3 tab TID STANTON Administration Citalopram Hydrobromide 20 mg 11/15/19 09:00 11/18/19 09:47 Celexa PO 20 mg DAILY STANTON Administration Enoxaparin Sodium 30 mg 11/14/19 09:00 11/18/19 09:47 Lovenox SC 30 mg 0900 STANTON Administration Finasteride 5 mg 11/15/19 09:00 11/18/19 09:47 Proscar PO 5 mg DAILY STANTON Administration Metoprolol Tartrate 100 mg 11/14/19 21:00 11/18/19 20:13 Lopressor PO 100 mg BID ST[facility]ON Administration Ondansetron HCl 4 mg 11/13/19 13:13 11/13/19 17:40 Zofran Odt PO 4 mg Q6H PRN Administration Nausea/Vomiting Ropinirole HCl 2 mg 11/14/19 21:00 11/18/19 20:13 Requip PO 2 mg HS STANTON Administration Tamsulosin HCl 0.4 mg 11/14/19 21:00 11/18/19 20:13 Flomax PO 0.4 mg BID STANTON Administration Terazosin HCl 2 mg 11/14/19 21:00 11/18/19 20:13 Hytrin PO 2 mg HS STANTON Administration - Exam Neck: supple, no JVD Heart: RRR, no gallops Respiratory: no rales, no ronchi Gastrointestinal: soft, non-tender, normal bowel sounds Extremities: no edema Hosp A/P - Plan DVT proph w/SCDs ANN-MARIE Parkinson disease Obstructive uropathy/BPH Gen weakness/Recurrent falls Chronic Anemia HTN Moderate PEM PLAN: Renal function improved Cont Farmer Cont Flomax/Finasteride Await Placement
[2019-11-19 06:00] LABS: Anion Gap 10 mmol/L (10-20); BUN (Urea Nitrogen) 15 mg/dL (8.4-25.7); Calc. Creatinine Clearance 60 mL/min (70-130); Calcium 8.2 mg/dL (7.8-10.44); Carbon Dioxide 27 mmol/L (23-31); Chloride 106 mmol/L (98-107); Estimated GFR-MDRD Greater than 90; Glucose 98 mg/dL (83-110); Potassium 3.6 mmol/L (3.5-5.1); Sodium 139 mmol/L (136-145)
[2019-11-19] MEDS: Carbidopa/Levodopa 25-100 mg Tablet PO SCH ×3 (08:38→21:16)
[2019-11-19] MEDS: Finasteride 5 MG TAB PO SCH (08:38)
[2019-11-19] MEDS: Citalopram 20 MG TAB PO SCH (08:38)
[2019-11-19] MEDS: Tamsulosin HCl 0.4 MG CAP PO SCH ×2 (08:39→21:16)
[2019-11-19] MEDS: Enoxaparin Sodium 30 MG/0.3 ML SYRINGE SC SCH (08:39)
[2019-11-19] MEDS: Metoprolol Tartrate 100 MG TAB PO SCH ×2 (08:39→21:16)
[2019-11-19] MEDS: Artificial Tear Sol 15 ML BOT EA EYE SCH ×4 (08:39→21:17)
--- NOTE | 2019-11-19 13:07 | PDOC.HOSPP ---
- Subjective Encounter Date: 11/19/19 Encounter Time: 07:30 Subjective: Patient seen and examined for ANN-MARIE. No hematuria/suprapubic pain. No new complaints. No overnight events - Objective Vital Signs & Weight: Vital Signs (12 hours) Temp Pulse Resp BP Pulse Ox 11/19/19 07:06 98.5 F 64 16 135/70 95 Weight Admit Weight 141 lb 4.96 oz Weight 141 lb 4.96 oz I&O: 11/18/19 11/19/19 11/20/19 06:59 06:59 06:59 Intake Total 240 920 Output Total 900 875 Balance -660 45 Result Diagrams: 11/17/19 04:47 11/19/19 05:10 Hospitalist ROS - Review of Systems Respiratory: denies: cough, dry, shortness of breath, hemoptysis, SOB with excertion, pleuritic pain, sputum, wheezing, other Cardiovascular: denies: chest pain, palpitations, orthopnea, paroxysmal noc. dyspnea, edema, light headedness, other - Medication Medications: Active Medications Generic Name Dose Route Start Last Admin Trade Name Freq PRN Reason Stop Dose Admin Artificial Tears 0 drop 11/14/19 13:00 11/19/19 08:39 Liquitears 15ml Bottle EA EYE 1 drop QID STANTON Administration Carbidopa/Levodopa 3 tab 11/14/19 15:00 11/19/19 08:38 Sinemet 25-100 PO 3 tab TID STANTON Administration Citalopram Hydrobromide 20 mg 11/15/19 09:00 11/19/19 08:38 Celexa PO 20 mg DAILY STANTON Administration Enoxaparin Sodium 30 mg 11/14/19 09:00 11/19/19 08:39 Lovenox SC 30 mg 0900 STANTON Administration Finasteride 5 mg 11/15/19 09:00 11/19/19 08:38 Proscar PO 5 mg DAILY STANTON Administration Metoprolol Tartrate 100 mg 11/14/19 21:00 11/19/19 08:39 Lopressor PO 100 mg BID STANTON Administration Ondansetron HCl 4 mg 11/13/19 13:13 11/13/19 17:40 Zofran Odt PO 4 mg Q6H PRN Administration Nausea/Vomiting Ropinirole HCl 2 mg 11/14/19 21:00 11/18/19 20:13 Requip PO 2 mg HS STANTON Administration Tamsulosin HCl 0.4 mg 11/14/19 21:00 11/19/19 08:39 Flomax PO 0.4 mg BID STANTON Administration Terazosin HCl 2 mg 11/14/19 21:00 11/18/19 20:13 Hytrin PO 2 mg HS STANTON Administration - Exam Neck: supple, no JVD Heart: RRR, no gallops Respiratory: no wheezes, no rales Gastrointestinal: soft, non-distended Gastrointestinal - other findings: lizama + Extremities: no edema Hosp A/P - Plan DVT proph w/SCDs ANN-MARIE - resolved Parkinson disease Obstructive uropathy/BPH Gen weakness/Recurrent falls Chronic Anemia HTN Moderate PEM Swallow dysfunction PLAN: Cont Flomax Cont Lizama for 1 more week Await Placement
[2019-11-19] MEDS: Terazosin HCl 1 MG CAP PO SCH (21:16)
[2019-11-19] MEDS: rOPINIRole HCl 2 MG TAB PO SCH (21:16)
[2019-11-20] MEDS: Citalopram 20 MG TAB PO SCH (07:50)
[2019-11-20] MEDS: Metoprolol Tartrate 100 MG TAB PO SCH ×2 (07:50→21:02)
[2019-11-20] MEDS: Enoxaparin Sodium 30 MG/0.3 ML SYRINGE SC SCH (07:50)
[2019-11-20] MEDS: Tamsulosin HCl 0.4 MG CAP PO SCH ×2 (07:50→21:02)
[2019-11-20] MEDS: Finasteride 5 MG TAB PO SCH (07:50)
[2019-11-20] MEDS: Artificial Tear Sol 15 ML BOT EA EYE SCH ×4 (07:50→21:04)
[2019-11-20] MEDS: Carbidopa/Levodopa 25-100 mg Tablet PO SCH ×3 (07:50→21:02)
--- NOTE | 2019-11-20 16:56 | PDOC.HOSPP ---
- Subjective Encounter Date: 11/20/19 Encounter Time: 10:30 Subjective: Patient seen and examined for ANN-MARIE. No fever/N/V. No new complaints. No overnight events - Objective Vital Signs & Weight: Vital Signs (12 hours) Temp Pulse Resp BP Pulse Ox 11/20/19 07:30 98.8 F 66 18 132/71 94 L Weight Admit Weight 141 lb 4.96 oz Weight 141 lb 4.96 oz I&O: 11/19/19 11/20/19 11/21/19 06:59 06:59 06:59 Intake Total 920 960 Output Total 875 850 Balance 45 110 Result Diagrams: 11/17/19 04:47 11/19/19 05:10 Hospitalist ROS - Review of Systems Respiratory: denies: cough, dry, shortness of breath, hemoptysis, SOB with excertion, pleuritic pain, sputum, wheezing, other Cardiovascular: denies: chest pain, palpitations, orthopnea, paroxysmal noc. dyspnea, edema, light headedness, other - Medication Medications: Active Medications Generic Name Dose Route Start Last Admin Trade Name Freq PRN Reason Stop Dose Admin Artificial Tears 0 drop 11/14/19 13:00 11/20/19 16:00 Liquitears 15ml Bottle EA EYE 1 drop QID STANTON Administration Carbidopa/Levodopa 3 tab 11/14/19 15:00 11/20/19 15:59 Sinemet 25-100 PO 3 tab TID STANTON Administration Citalopram Hydrobromide 20 mg 11/15/19 09:00 11/20/19 07:50 Celexa PO 20 mg DAILY STANTON Administration Enoxaparin Sodium 30 mg 11/14/19 09:00 11/20/19 07:50 Lovenox SC 30 mg 0900 STANTON Administration Finasteride 5 mg 11/15/19 09:00 11/20/19 07:50 Proscar PO 5 mg DAILY STANTON Administration Metoprolol Tartrate 100 mg 11/14/19 21:00 11/20/19 07:50 Lopressor PO 100 mg BID STANTON Administration Ondansetron HCl 4 mg 11/13/19 13:13 11/13/19 17:40 Zofran Odt PO 4 mg Q6H PRN Administration Nausea/Vomiting Ropinirole HCl 2 mg 11/14/19 21:00 11/19/19 21:16 Requip PO 2 mg HS STANTON Administration Tamsulosin HCl 0.4 mg 11/14/19 21:00 11/20/19 07:50 Flomax PO 0.4 mg BID STANTON Administration Terazosin HCl 2 mg 11/14/19 21:00 11/19/19 21:16 Hytrin PO 2 mg HS STANTON Administration - Exam General Appearance: NAD Heart: RRR, no gallops Respiratory: no wheezes, no rales Gastrointestinal: non-tender, non-distended, normal bowel sounds Extremities: no edema Hosp A/P - Plan DVT proph w/SCDs ANN-MARIE - resolved Parkinson disease Obstructive uropathy/BPH Gen weakness/Recurrent falls Chronic Anemia HTN Moderate PEM Swallow dysfunction PLAN: Cont Farmer x 1 more week Cont Flomax and other meds Await Placement
[2019-11-20] MEDS: Terazosin HCl 1 MG CAP PO SCH (21:02)
[2019-11-20] MEDS: rOPINIRole HCl 2 MG TAB PO SCH (21:27)
[2019-11-21] MEDS: Artificial Tear Sol 15 ML BOT EA EYE SCH ×2 (08:48→14:21)
[2019-11-21] MEDS: Tamsulosin HCl 0.4 MG CAP PO SCH (08:49)
[2019-11-21] MEDS: Citalopram 20 MG TAB PO SCH (08:49)
[2019-11-21] MEDS: Carbidopa/Levodopa 25-100 mg Tablet PO SCH ×2 (08:49→15:19)
[2019-11-21] MEDS: Finasteride 5 MG TAB PO SCH (08:49)
[2019-11-21] MEDS: Enoxaparin Sodium 30 MG/0.3 ML SYRINGE SC SCH (08:54)
[2019-11-21] MEDS: Metoprolol Tartrate 100 MG TAB PO SCH (09:02)
[2019-11-21 15:11] VITALS: BP 119/62; TEMP 98.1
[2019-11-21] MEDS ORDERED: Metoprolol Tartrate 50 MG TAB PO SCH (21:00)
--- NOTE | 2019-11-22 12:33 | DIS ---
DATE OF ADMISSION: 11/13/2019 DATE OF DISCHARGE: 11/21/2019 DISCHARGE DISPOSITION: [facility]. DISCHARGE MEDICATIONS: 1. Tylenol as needed. 2. Carbidopa/levodopa 25/100 three capsules 3 times a day. 3. Artificial Tears as directed. 4. Celexa 20 mg daily. 5. Proscar 5 mg daily. 6. Ropinirole 2 mg at bedtime. 7. Flomax 1 capsule b.i.d. 8. Terazosin 2 mg at bedtime. 9. Metoprolol tartrate 50 mg b.i.d. (dose reduced). The patient was seen and examined on the day of discharge. Denies any new complaints. FOLLOWUP: 1. Follow up with [facility] in 1 week. 2. Follow up with Podiatry and Urology in 1 week. 3. Please discontinue Farmer catheter after 1 week. BRIEF HOSPITAL COURSE: The patient is an 84-year-old male with benign prostatic hypertrophy, presented to the hospital on November 13, 2019 with generalized weakness and recurrent falls. He denies significant injury. He slipped out of his chair. He also reported low appetite. His blood pressure in the emergency room was 188/117 with labs showing significant acute kidney injury with creatinine of 7.59 with BUN of 66. Please refer to the history and physical for further details. The patient was admitted to the hospital with diagnosis of acute kidney injury. Renal ultrasound showed findings suspicious for bladder outlet obstruction. A Farmer catheter was placed. He was evaluated by Nephrology as well as Urology, Dr. Rosa. Per Urology instruction, the patient will continue Farmer catheter for at least one week. The patient may need a voiding trial. He was advised to continue Flomax, finasteride, and terazosin. His renal function has improved. His creatinine was 0.82 with normal potassium and sodium. He has been extensively counseled on above medications and the side effects. Due to blood pressure on the lower side, metoprolol dose was reduced. FINAL DIAGNOSES: 1. 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 2. Parkinson disease. 3. Benign prostatic hypertrophy. 4. Generalized weakness with recurrent falls. 5. Chronic anemia. 6. Hypertension. 7. Moderate protein energy malnutrition. 8. Swallow dysfunction. TIME SPENT: Total time coordinating the discharge of this patient was 35 minutes. Job ID: [id number]
== END 2019-11-21 15:55 | DRG 683 ==
LOC: ERS 09:00 → T4-A 12:11
PROVIDERS: ADMIT Internal Medicine; ATTEND Internal Medicine
DX: N17.9 Acute kidney failure, unspecified (principal); E87.2 Acidosis; E44.0 Moderate protein-calorie malnutrition; Z68.1 Body mass index [BMI] 19.9 or less, adult; N13.9 Obstructive and reflux uropathy, unspecified; G20 Parkinson's disease; F17.200 Nicotine dependence, unspecified, uncomplicated; R13.12 Dysphagia, oropharyngeal phase; N18.9 Chronic kidney disease, unspecified; D64.9 Anemia, unspecified; N40.1 Benign prostatic hyperplasia with lower urinary tract symptoms; I10 Essential (primary) hypertension; E87.5 Hyperkalemia; N13.30 Unspecified hydronephrosis
CPT/HCPCS: 36415; 51701; 71045; 76770; 80048; 80053; 81003; 81015; 83880; 84484; 85025; 93005; J0696; J1650; J3490; Q0162

== ENCOUNTER 2020-01-19 08:39 | Emergency (ER) | payer OTHER ==
[2020-01-19 09:34] LABS: Bilirubin Small (Negative); Blood, Urine Large (Negative); Glucose, Urine (Dipstick) Negative (Negative); Leukocyte Large (Negative); Nitrite Positive (Negative); Protein, Urine (Dipstick) > or equal to 300 mg/dL (Neg-Trace); Urobilinogen 0.2 mg/dL (Less than 2)
[2020-01-19 09:39] LABS: Clarity Turbid (Clear)
[2020-01-19 09:46] LABS: RBC/HPF 21-50 HPF (0-3); WBC/HPF Greater Than 50 HPF (0-3)
[2020-01-19 09:47] LABS: Bacteria/HPF 4+ HPF (None Seen); Squamous Epithelial None Seen HPF (0-3); Triple Phosphate Crystal 1+ HPF (None Seen)
[2020-01-19] MEDS ORDERED: Ciprofloxacin 500 MG TAB ONE (10:56)
[2020-01-19] MEDS ORDERED: Ciprofloxacin 500 MG TAB PO SCH (11:00)
== END 2020-01-19 11:34 | disposition home or self-care (01) ==
LOC: ERS 08:39
DX: N30.00 Acute cystitis without hematuria (principal); G20 Parkinson's disease
CPT/HCPCS: 81003; 81015; 87077; 87086; 87186; 99283

== ENCOUNTER 2020-05-04 15:52 | Emergency (ER) | payer OTHER ==
[2020-05-04 16:45] LABS: #Basophils 0.1 thou/uL (0.0-0.2); #Eosinphils 0.3 thou/uL (0.0-0.7); #Lymphocytes 2.6 thou/uL (1.20-3.40); #Monocytes 0.5 thou/uL (0.11-0.59); #Neutrophils 3.3 thou/uL (1.40-6.50); %Basophils 1.1 % (0.0-1.0); %Eosinophils 3.7 % (0.0-10.0); %Lymphocytes 38.3 % (21.0-51.0); %Monocytes 7.6 % (0.0-10.0); %Neutrophils 49.3 % (42.0-75.0); Hemoglobin 11.8 g/dL (14.0-18.0); Mean Corpuscular HGB CONC 31.5 g/dL (32.0-36.0); Mean Corpuscular Volume 92.1 fL (78.0-98.0); Mean Platelet Volume 8.3 fL (7.4-10.4); Platelet Count 168 thou/uL (130-400); RBC Distribution Width 14.4 % (11.5-14.5); Red Blood Cell (RBC) Count 4.08 mill/uL (4.70-6.10); White Blood Cell (WBC) Count 6.7 thou/uL (4.8-10.8)
[2020-05-04 17:55] LABS: Bacteria/HPF 4+ HPF (None Seen); Bilirubin Negative (Negative); Blood, Urine 1+ (Negative); Clarity Turbid (Clear); Glucose, Urine (Dipstick) Normal (Negative); Leukocyte 500 Leu/uL (Negative); Nitrite Negative (Negative); Protein, Urine (Dipstick) 100 mg/dL (Neg-Trace); Squamous Epithelial None Seen HPF (0-3); Urobilinogen 3 mg/dL (Less than 2); WBC/HPF Greater than 50 HPF (0-3)
[2020-05-04] MEDS ORDERED: Nitrofurantoin Macrocrystal 50 MG CAP PO SCH (19:15)
== END 2020-05-04 20:09 | disposition home or self-care (01) ==
LOC: ERS 15:52
DX: N39.0 Urinary tract infection, site not specified (principal); R33.9 Retention of urine, unspecified; G20 Parkinson's disease; Z87.891 Personal history of nicotine dependence; Z79.899 Other long term (current) drug therapy
CPT/HCPCS: 36415; 51701; 81003; 81015; 85025; 87077; 87086; 87186